=== PATIENT | female | born 1975 | race Caucasian/White ===

== ENCOUNTER 2025-08-10 07:40 | Emergency (ER) | payer OTHER, SELFPAY ==
[2025-08-10 07:41] VITALS: BP 149/82; PULSE 79; RESP 16; TEMP 36.4; O2SAT 99
[2025-08-10 07:49] VITALS: BP 121/77; PULSE 79; RESP 15; O2SAT 100; BMI 36.3
--- NOTE | 2025-08-10 08:00 | RAD_ITS ---
PROCEDURE: FOREARM 2 VIEWS; HAND MIN 3 VIEWS 08/10/2025 REASON FOR EXAM: PAIN; INJURY, PAIN, SWELLING TECHNIQUE: Procedure Code: LAKEIS[facility] WEBSTER Modality: DX Procedure: FOREARM 2 VIEWS; HAND MIN 3 VIEWS Laterality: Left COMPARISON: None. FINDINGS: Radiographs of the left hand and left forearm demonstrate anatomic alignment with a questionable tiny chip fracture of the base of the left 5th metacarpal. Circumferential soft tissue swelling at the level of the wrist. No elbow effusion. RAD/Hand Min 3 Views IMPRESSION: Left wrist soft tissue swelling with questionable chip fracture at the base of the left 5th metacarpal. No evidence of elbow fracture. Reading Location: [facility]
--- NOTE | 2025-08-10 08:00 | RAD_ITS ---
PROCEDURE: FOREARM 2 VIEWS; HAND MIN 3 VIEWS 08/10/2025 REASON FOR EXAM: PAIN; INJURY, PAIN, SWELLING TECHNIQUE: Procedure Code: [facility]ISHA WEBSTER Modality: DX Procedure: FOREARM 2 VIEWS; HAND MIN 3 VIEWS Laterality: Left COMPARISON: None. FINDINGS: Radiographs of the left hand and left forearm demonstrate anatomic alignment with a questionable tiny chip fracture of the base of the left 5th metacarpal. Circumferential soft tissue swelling at the level of the wrist. No elbow effusion. RAD/Forearm 2 Views IMPRESSION: Left wrist soft tissue swelling with questionable chip fracture at the base of the left 5th metacarpal. No evidence of elbow fracture. Reading Location: [facility]
[2025-08-10 09:46] VITALS: BP 133/78; PULSE 83; RESP 13; TEMP 37; O2SAT 99
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
== END 2025-08-10 09:55 | disposition home or self-care (01) ==
PROVIDERS: Emergency Provider Student in an Organized Health Care Education/Training Program; PCP Nurse Practitioner; Visit Provider Student in an Organized Health Care Education/Training Program
DX: S60.222A Contusion of left hand, initial encounter (principal); S50.02XA Contusion of left elbow, initial encounter; V48.5XXA Car driver injured in noncollision transport accident in traffic accident, initial encounter
CPT/HCPCS: 73090; 73130; 99282